=== PATIENT | female | born 1990 | race Two or more races ===

== ENCOUNTER 2017-12-05 18:21 | Emergency (ER) | payer OTHER ==
[~2017-12-05] VITALS: Ht 165.1 cm; Wt 47.6 kg
--- NOTE | 2017-12-05 19:00 | NUR ---
PT CAME IN WITH CO VAGINAL BLEEDING S/P TAKING PILL x 3 WEEKS AGO. ALSO REPORTS CRAMPS. SEEN BY FOR EVAL. VSS. SAFETY AND COMFORT MEASURES PROVIDED. WILL MONITOR.
[2017-12-05] MEDS ORDERED: IBUPROFEN 600 MG TABLET PO ONE ×2 (19:58→20:00)
[2017-12-05] MEDS ORDERED: IV NS 0.9% 1,000 ML BAG IV ONE (20:00)
--- NOTE | 2017-12-05 20:00 | NUR ---
IV ACCESS STARTED. MEDICATED ORDERED.
[2017-12-05 20:03] LABS: BASOPHILS # (AUTO) 0.1 /CMM (0.0-0.2); BASOPHILS % (AUTO) 0.9 % (0.0-2.0); EOSINOPHILS # (AUTO) 0.4 /CMM (0.0-0.7); HEMATOCRIT 32 % (33-45); HEMOGLOBIN 11.3 g/dL (11.5-14.8); LYMPHOCYTES # (AUTO) 1.8 /CMM (0.8-4.8); MEAN CORPUSCULAR HEMOGLOBIN 32 PG (26.0-33.0); MEAN CORPUSCULAR HGB CONC 36 g/dl (31.0-36.0); MEAN CORPUSCULAR VOLUME 89 fL (82-100); MONOCYTES # (AUTO) 0.5 /CMM (0.1-1.30); MONOCYTES % (AUTO) 5.6 % (2.0-12.0); NEUTROPHILS # (AUTO) 6.6 /CMM (1.8-8.9); NEUTROPHILS % (AUTO) 70.5 % (43.0-81.0); PLATELET COUNT (AUTO) 256 /CMM (150-450); RDW COEFFICIENT OF VARIATION 11.8 (11.5-15.0); RED BLOOD CELL COUNT(AUTO) 3.57 MIL/uL (4.0-5.2); WHITE BLOOD COUNT (AUTO) 9.4 K/uL (4.3-11.0)
--- NOTE | 2017-12-05 20:30 | NUR ---
CHAPERONED [employer]co[employer] TECH FOR TRANS VAG.
--- NOTE | 2017-12-05 21:10 | NUR ---
AT FOR PELVIC EXAM.
--- NOTE | 2017-12-05 21:20 | NUR ---
DR MOTTA ON THE PHONE WITH OB DR SHARMA
--- NOTE | 2017-12-05 22:37 | NUR ---
Patient discharged to home in stable condition. Written and verbal after care instructions given. Patient verbalizes understanding of instruction.
--- NOTE | 2017-12-05 22:37 | NUR ---
IV removed. Catheter intact and site benign. Pressure and 4x4 applied to site. No bleeding noted.
[2017-12-05 22:38] VITALS: BP 124/71
== END 2017-12-05 22:38 | disposition home or self-care (01) ==
LOC: ER 18:23
DX: O02.1 Missed abortion (principal); D50.9 Iron deficiency anemia, unspecified; N83.201 Unspecified ovarian cyst, right side; Z3A.01 Less than 8 weeks gestation of pregnancy
CPT/HCPCS: 36415; 76856-TC; 84702-TC; 85025-TC; 86850-TC; A4606; J7030; Z7610